=== PATIENT | male | born 1995 | race Asian ===

== ENCOUNTER 2016-10-27 16:27 | Emergency (ER) | payer OTHER ==
[~2016-10-27] VITALS: Ht 165.1 cm; Wt 70.2 kg
[2016-10-27 16:28] VITALS: BP 132/60
[2016-10-27] MEDS ORDERED: BENA25CA4 PO (16:39)
[2016-10-27] MEDS ORDERED: FAMOTIDINE 20 MG TAB PO ONE (17:15)
[2016-10-27] MEDS ORDERED: methylPREDNISolone INJ 125 MG/2 ML VIAL (J2930) IM ONE (17:15)
[2016-10-27] MEDS ORDERED: PRED20TA PO (17:52)
[2016-10-27] MEDS ORDERED: PEPC1TAB4 PO (17:52)
== END 2016-10-27 18:03 | disposition home or self-care (01) ==
LOC: M ED 16:27
DX: L50.0 Allergic urticaria (principal); Z91.013 Allergy to seafood
CPT/HCPCS: 96372; 99282; J2930